=== PATIENT | male | born 1995 | race Caucasian/White ===

== ENCOUNTER 2024-02-06 16:19 | Emergency (ER) | payer SELFPAY ==
[~2024-02-06] VITALS: Ht 167.6 cm; Wt 98.0 kg
[2024-02-06 16:23] VITALS: O2SAT 71
[2024-02-06 18:25] VITALS: BP 130/77; PULSE 64; RESP 15; TEMP 97.9
== END 2024-02-06 18:26 | disposition home or self-care (01) ==
LOC: ER 16:19
DX: S61.412D Laceration without foreign body of left hand, subsequent encounter (principal); X58.XXXD Exposure to other specified factors, subsequent encounter
CPT/HCPCS: 12001; 99282